=== PATIENT | female | born 1960 | race Caucasian/White ===

== ENCOUNTER 2021-05-17 09:26 | Inpatient (IN) | payer MEDICARE ==
[~2021-05-17] VITALS: Ht 160 cm; Wt 94.1 kg
[~2021-05-17 09:26] MED LIST: ASPIRIN EC81 MG PO; ELIQUIS5 MG PO; LIPITOR40 MG PO; LOVENOX100 MG/1 M SC; NITROQUIK SL0.4 MG SL; PANTOPRAZOLE SO40 MG PO; PEPCID AC20 MG PO; PROAIR HFA8.5 GM INH; TOPROL XL 50 MG50 MG PO; VITAMIN B-121000 MC1 SC; ZETIA10 MG PO; ZOLOFT50 MG PO
[2021-05-17 10:05] LABS: BASOPHIL 0.6 % (0-2); EOSINOPHIL 0.4 % (0-5); HCT 28.8 % (37.0-47.0); HGB 9.1 g/dl (12.5-16.0); MCH 32.2 pg (25.0-31.0); MCHC 31.6 g/dL (32.0-36.0); MCV 101.8 fL (78.0-100.0); NRBC 0; PLT 108 K/uL (150-400); RBC 2.83 M/uL (4.20-5.40); RDW 14.8 % (11.5-14.0); WBC 6.9 K/uL (4.0-10.5)
[2021-05-17 10:12] LABS: INR 1.26 (0.9-1.2); PROTHROMBIN TIME 15.1 SECONDS (11.8-13.4)
[2021-05-17 10:14] LABS: D-DIMER 0.49 ug/mLFEU (0.00-0.41)
[2021-05-17 10:22] LABS: ALBUMIN 3.8 g/dL (3.4-5.0); BILIRUBIN - TOTAL 0.4 mg/dL (0.2-1.0); BUN/CREAT RATIO (CALC) 13.8 RATIO; CREATININE 2.03 mg/dL (0.51-0.95); GLOBULIN (CALCULATION) 3.3 g/dL; POTASSIUM 4.8 mmol/L (3.5-5.1); PRO-BNP 4541 pg/mL (<125); TOTAL PROTEIN 7.1 g/dL (6.4-8.2)
[2021-05-17 10:40] LABS: LACTIC ACID 0.8 mmol/L (0.4-1.9)
[2021-05-17 11:09] LABS: PTT 80.1 SECONDS (24.4-34.7)
[2021-05-17 11:11] LABS: CORONAVIRUS 2019 SARS-COV-2 NEGATIVE (NEGATIVE); INFLUENZA A NAA NEGATIVE (NEGATIVE)
[2021-05-17 12:14] LABS: BILIRUBIN NEGATIVE (NEGATIVE); BLOOD TRACE-INTACT Ery/uL (NEGATIVE); CLARITY CLEAR (CLEAR); COLOR YELLOW (YELLOW); GLUCOSE (U) NORMAL (NORMAL); LEUKOCYTES 1+ Leu/uL (NEGATIVE); NITRITE POSITIVE (NEGATIVE); PROTEIN NEGATIVE (NEGATIVE); SPECIFIC GRAVITY 1.015 (1.001-1.030); UROBILINOGEN 0.2 mg/dL (0.2-1.0); pH 7.5 (5.0-9.0)
[2021-05-17 12:25] LABS: BACTERIA 3+; SQUAMOUS EPITHELIAL CELLS RARE; URINARY WBC 20-50
[2021-05-17 14:00] LABS: BUN/CREAT RATIO (CALC) 13.7 RATIO; CREATININE 2.05 mg/dL (0.51-0.95); POTASSIUM 4.4 mmol/L (3.5-5.1)
[2021-05-17] MEDS ORDERED: ZOLOFT100 MG PO (16:33)
[2021-05-17] MEDS ORDERED: SYNTHROID100 MCG PO (16:35)
[2021-05-17] MEDS ORDERED: MAG-OXIDE 400M400 MG PO (16:36)
[2021-05-17] MEDS ORDERED: D3-200050 MCG PO (16:37)
[2021-05-17] MEDS ORDERED: COQ-10100 MG PO (16:38)
[2021-05-17] MEDS ORDERED: CANDICIDAL CAP1 EACH PO (16:38)
[2021-05-17] MEDS ORDERED: 3IN1 COMMODE (16:38)
[2021-05-18 04:23] LABS: BASOPHIL 0.2 % (0-2); EOSINOPHIL 0 % (0-5); HCT 30.5 % (37.0-47.0); HGB 9.6 g/dl (12.5-16.0); LYMPHOCYTE 4.5 % (15-48); MCH 31.8 pg (25.0-31.0); MCHC 31.5 g/dL (32.0-36.0); MONOCYTE 4.9 % (0-12); MPV 11.6 fL (6.0-9.5); NEUTROPHIL 89.1 % (41-80); NRBC 0; PLT 119 K/uL (150-400); RBC 3.02 M/uL (4.20-5.40); RDW 14.9 % (11.5-14.0); WBC 8.8 K/uL (4.0-10.5)
[2021-05-18 04:45] LABS: BUN/CREAT RATIO (CALC) 13.8 RATIO; CREATININE 2.47 mg/dL (0.51-0.95); POTASSIUM 5.1 mmol/L (3.5-5.1)
[2021-05-18 04:56] LABS: PRO-BNP 5715 pg/mL (<125)
--- NOTE | 2021-05-18 17:12 | NUR ---
05/18/21 Ms. Quintanilla sharres a home with her spouse. Her daughter and granddaughter live on the property. She has home 02 and a rollator. PT recommended Outpatient PT, Ms. Quintanilla declined stating she feels much better and belives she can resume her daily activities.
[2021-05-19] MEDS ORDERED: ADVAIR HFA 230-28 GM INH (08:05)
[2021-05-19] MEDS ORDERED: CEFDINIR300 MG PO (08:05)
[2021-05-19] MEDS ORDERED: PREDNISONE 20MG20 MG PO (08:05)
[2021-05-19 08:27] LABS: BASOPHIL 0.4 % (0-2); EOSINOPHIL 0 % (0-5); HCT 30.1 % (37.0-47.0); HGB 9.6 g/dl (12.5-16.0); LYMPHOCYTE 9.2 % (15-48); MCH 31.9 pg (25.0-31.0); MCHC 31.9 g/dL (32.0-36.0); MONOCYTE 9.4 % (0-12); NEUTROPHIL 79.6 % (41-80); NRBC 0.2; PLT 150 K/uL (150-400); RBC 3.01 M/uL (4.20-5.40); WBC 10.4 K/uL (4.0-10.5)
[2021-05-19 09:08] LABS: BUN/CREAT RATIO (CALC) 18.7 RATIO; CREATININE 2.3 mg/dL (0.51-0.95)
[2021-05-19] MEDS ORDERED: BACLOFEN 10MG T10 MG PO (09:17)
[2021-05-19] MEDS ORDERED: LASIX20 MG PO (09:20)
--- NOTE | 2021-05-19 11:06 | NUR ---
DISCHARGE ORDERS RECEIVED. PORT DEACCESSED USING HEPARIN FLUSH ORDERED. PT TAKEN TO PT PICKUP VIA WHEELCHAIR. PT VERBALIZED UNDERSTANDING OF ALL DISCHARGE ORDERS AND TO CALL TO MAKE HER APPOINTMENTS.
== END 2021-05-19 11:20 | disposition home or self-care (01) | DRG 205 ==
LOC: FER 09:26 → FTCU 14:18
PROVIDERS: Emergency Medicine; ADMIT Allergy & Immunology Allergy
DX: J70.4 Drug-induced interstitial lung disorders, unspecified (principal); I50.33 Acute on chronic diastolic (congestive) heart failure; N18.4 Chronic kidney disease, stage 4 (severe); I13.0 Hypertensive heart and chronic kidney disease with heart failure and stage 1 through stage 4 chronic kidney disease, or unspecified chronic kidney disease; N17.9 Acute kidney failure, unspecified; N39.0 Urinary tract infection, site not specified; T45.1X5A Adverse effect of antineoplastic and immunosuppressive drugs, initial encounter; G47.30 Sleep apnea, unspecified; E78.5 Hyperlipidemia, unspecified; F17.210 Nicotine dependence, cigarettes, uncomplicated; Z20.822 Contact with and (suspected) exposure to COVID-19; I27.20 Pulmonary hypertension, unspecified; J44.9 Chronic obstructive pulmonary disease, unspecified; Z90.2 Acquired absence of lung [part of]; Z90.49 Acquired absence of other specified parts of digestive tract; Z90.89 Acquired absence of other organs; Z98.51 Tubal ligation status; Z92.21 Personal history of antineoplastic chemotherapy; Z79.01 Long term (current) use of anticoagulants; Z79.82 Long term (current) use of aspirin; Z79.899 Other long term (current) drug therapy; Z95.5 Presence of coronary angioplasty implant and graft; Z88.8 Allergy status to other drugs, medicaments and biological substances
CPT/HCPCS: 36415; 36600; 71045; 71046; 71250; 80048; 80053; 81001; 82803; 83605; 83735; 83880; 84145; 84484; 85025; 85379; 85610; 85730; 87040; 87076; 87088; 87186; 93005; 94010; 94640; 94664; 94762; 97116; 97161; 97530-GP; J0696; J1642; J1940; J2405; J2930; J3475; J7512; U0002

== ENCOUNTER 2021-10-02 14:32 | Emergency (ER) | payer MEDICARE ==
[~2021-10-02 14:32] MED LIST changes: +3IN1 COMMODE; +ADVAIR HFA 230-28 GM INH; +BACLOFEN 10MG T10 MG PO; +CANDICIDAL CAP1 EACH PO; +CEFDINIR300 MG PO; +COQ-10100 MG PO; +D3-200050 MCG PO; +LASIX20 MG PO; +MAG-OXIDE 400M400 MG PO; +PREDNISONE 20MG20 MG PO; +SYNTHROID100 MCG PO; +ZOLOFT100 MG PO
[2021-10-02 20:25] LABS: BASOPHIL 0.8 % (0-2); EOSINOPHIL 1.3 % (0-5); HGB 10.5 g/dl (12.5-16.0); LYMPHOCYTE 13.8 % (15-48); MCH 30.4 pg (25.0-31.0); MCHC 30.9 g/dL (32.0-36.0); MCV 98.6 fL (78.0-100.0); MONOCYTE 2.8 % (0-12); MPV 11.7 fL (6.0-9.5); NEUTROPHIL 80.8 % (41-80); NRBC 0; PLT 142 K/uL (150-400); RBC 3.45 M/uL (4.20-5.40); RDW 16.8 % (11.5-14.0)
[2021-10-02 21:01] LABS: CREATININE 1.78 mg/dL (0.51-0.95); POTASSIUM 5.2 mmol/L (3.5-5.1)
[2021-10-02 21:07] LABS: BILIRUBIN NEGATIVE (NEGATIVE); BLOOD 3+ Ery/uL (NEGATIVE); CLARITY CLEAR (CLEAR); COLOR YELLOW (YELLOW); GLUCOSE (U) NORMAL (NORMAL); LEUKOCYTES TRACE Leu/uL (NEGATIVE); NITRITE NEGATIVE (NEGATIVE); PROTEIN NEGATIVE (NEGATIVE); UROBILINOGEN 0.2 mg/dL (0.2-1.0)
[2021-10-02 21:14] LABS: BACTERIA TRACE; URINARY RBC 20-50
== END 2021-10-02 22:20 | disposition home or self-care (01) ==
LOC: FER 14:32
PROVIDERS: Emergency Medicine; Internal Medicine
DX: E11.22 Type 2 diabetes mellitus with diabetic chronic kidney disease (principal); N18.30 Chronic kidney disease, stage 3 unspecified; D63.1 Anemia in chronic kidney disease; R31.9 Hematuria, unspecified; E87.5 Hyperkalemia; I25.10 Atherosclerotic heart disease of native coronary artery without angina pectoris; Z88.8 Allergy status to other drugs, medicaments and biological substances; Z87.891 Personal history of nicotine dependence
CPT/HCPCS: 36415; 80048; 81001; 85025; J7030

== ENCOUNTER 2021-10-02 23:47 | Emergency (ER) | payer MEDICARE | END 2021-10-03 01:34 | disposition EXP | LOC: FER 23:47 | DX: I46.9 Cardiac arrest, cause unspecified (principal); I49.9 Cardiac arrhythmia, unspecified | CPT/HCPCS: 36600; 82803; 93005; 96365; 96375; J0171; J2704; J2997; J3010; J3101; J7030 ==